=== PATIENT | female | born 1990 | race Caucasian/White ===

== ENCOUNTER → 2017-06-05 | Outpatient (CLI) | payer OTHER ==
[2016-11-06 01:50] VITALS: BP 129/72
[2017-06-05 16:51] LABS: BASO # 0.1 x10^3/uL (0.0-0.2); BASO % 1 % (0-3); EOS # 0.3 x10^3/uL (0.0-0.7); EOS % 2 % (0-3); HEMATOCRIT 39.2 % (36.0-47.0); HEMOGLOBIN 13.4 g/dL (12.0-15.5); LYMPH # 3.9 x10^3/uL (1.0-4.8); LYMPH % 29 % (24-48); MEAN CORPUSCULAR HEMOGLOBIN 31 pg (25-35); MEAN CORPUSCULAR HGB CONC 34 g/dL (31-37); MEAN CORPUSCULAR VOLUME 90 fL (79-100); MONO # 0.9 x10^3/uL (0.0-1.1); MONO % 7 % (0-9); NEUT # 8.4 x10^3uL (1.8-7.7); NEUT % 62 % (31-73); PLATELET COUNT 379 x10^3/uL (140-400); RED BLOOD COUNT 4.36 x10^6/uL (3.50-5.40); RED CELL DISTRIBUTION WIDTH 12.8 % (11.5-14.5); WHITE BLOOD COUNT 13.5 x10^3/uL (4.0-11.0)
[2017-06-05 17:03] LABS: ALBUMIN 3.8 g/dL (3.4-5.0); ALBUMIN/GLOBULIN RATIO 0.9 (1.0-1.7); CALCIUM 8.9 mg/dL (8.5-10.1); CREATININE 0.6 mg/dL (0.6-1.0); POTASSIUM 3.7 mmol/L (3.5-5.1); TOTAL BILIRUBIN 0.3 mg/dL (0.2-1.0); TOTAL PROTEIN 7.9 g/dL (6.4-8.2)
[2017-06-06 02:07] LABS: HEMOGLOBIN A1C 4.9 % (4.8-5.6)
[2017-06-06 04:09] LABS: FSH 3.8 mIU/mL (.); LUTEINIZING HORMONE 8.1 mIU/mL (.); PROLACTIN 25.5 ng/mL (4.8-23.3)
== END | disposition home or self-care (01) ==
LOC: LAB 16:07
PROVIDERS: ATTEND Family Medicine
DX: N92.5 Other specified irregular menstruation (principal)
CPT/HCPCS: 36415; 80053; 82627; 83001; 83002; 83036; 84146; 84439; 84443; 84702; 85025

== ENCOUNTER → 2017-06-11 | Outpatient (CLI) | payer OTHER ==
[2016-11-06 01:50] VITALS: BP 129/72
--- NOTE | 2017-06-11 15:59 | RAD ---
Pelvic ultrasound 06/11/2017 Clinical history: Irregular menstrual periods Technique: Using the distended urinary bladder as a sonographic window, a real-time ultrasound examination pelvis was performed. Additionally in attempt to better evaluate the uterus and adnexa, a transvaginal ultrasound study was performed. Multiple images were obtained. Findings: The uterus is within normal limits in size and echogenicity. It measures 8.8 x 4.4 x 2.9 cm in longitudinal, transverse, and AP dimensions. The endometrial echo complex measures 8 mm in thickness which is within normal limits. No focal abnormality of the uterus is seen. Both ovaries are within normal limits in size and echogenicity. The right ovary measures 3.4 x 3.1 x 1.8 cm in size. The left ovary measures 3.5 x 3.3 x 2.1 cm in size. No adnexal mass is seen. A minimal amount of free fluid is seen within the pelvis. Impression: Minimal amount of free fluid is seen within the pelvis. Otherwise negative study.
== END | disposition home or self-care (01) ==
LOC: US 14:41
PROVIDERS: ATTEND Family Medicine
DX: N92.5 Other specified irregular menstruation (principal)
CPT/HCPCS: 76830; 76856

== ENCOUNTER → 2017-09-19 | Outpatient (CLI) | payer OTHER ==
[2016-11-06 01:50] VITALS: BP 129/72
[~2017-09-19] MED LIST: IOHEXOL 240 MG/ML 50ML VIAL. PO ONE; IOHEXOL 300 MG/ML 75 ML VIAL. IV ONE
--- NOTE | 2017-09-19 16:49 | RAD ---
CT scan of the abdomen with IV contrast: History: 8 days of left upper quadrant pain. Comparison:None. Procedure: Contiguous axial images of the abdomen were performed after the administration of 75 cc of Omni 300 IV contrast and oral contrast. Findings: Liver: Unremarkable. Spleen: Unremarkable. Pancreas: Unremarkable. Adrenal Glands: Unremarkable. Right Kidney: Unremarkable. Left Kidney: Unremarkable. Aorta: Normal. There is no mass or lymphadenopathy. There is no free air. There is no free fluid. Impression: Unremarkable CT of the abdomen. PQRS Compliance Statement: One or more of the following individualized dose reduction techniques were utilized for this examination: 1. Automated exposure control 2. Adjustment of the mA and/or kV according to patient size 3. Use of iterative reconstruction technique
== END | disposition home or self-care (01) ==
LOC: CT 13:03
PROVIDERS: ATTEND Internal Medicine
DX: R10.12 Left upper quadrant pain (principal)
CPT/HCPCS: 74177